=== PATIENT | female | born 1995 | race African-American/Black ===

== ENCOUNTER 2021-01-15 12:48 | Emergency (ER) | payer MEDICAID, SELFPAY | END 2021-01-15 13:15 | disposition home or self-care (01) | LOC: CSHERS 12:48 | DX: O99.891 Other specified diseases and conditions complicating pregnancy (principal); Z11.3 Encounter for screening for infections with a predominantly sexual mode of transmission; O99.511 Diseases of the respiratory system complicating pregnancy, first trimester; J45.909 Unspecified asthma, uncomplicated; O99.331 Smoking (tobacco) complicating pregnancy, first trimester; F17.210 Nicotine dependence, cigarettes, uncomplicated; Z3A.01 Less than 8 weeks gestation of pregnancy | CPT/HCPCS: 99281 ==

== ENCOUNTER 2021-08-12 20:44 | Emergency (ER) | payer SELFPAY ==
[2021-08-12 21:59] LABS: Bilirubin Neg (Negative); Blood, Urine 25 (Negative); Clarity Clear (Clear); Glucose, Urine (Dipstick) Normal (Negative); Ketone, Urine Negative (Negative); Leukocyte Negative (Negative); Nitrite Negative (Negative); Protein, Urine (Dipstick) 30 mg/dl (Neg-Trace); Urobilinogen Normal mg/dL (Less than 2)
[2021-08-12 22:01] LABS: Pregnancy Test - Urine (BHCG) Negative (Negative); Pregu Control Bar Appear? YES (CONTROL BAR)
[2021-08-12 22:02] LABS: Pregu Control Background? CLEAR/WHITE (CLR/WHITE)
[2021-08-12 22:11] LABS: Bacteria/HPF 1+ HPF (None Seen); Mucous/LPF Rare LPF (<2+); RBC/HPF 0-3 HPF (0-3); Squamous Epithelial 0-3 HPF (0-3); WBC/HPF 0-3 HPF (0-3)
== END 2021-08-12 22:22 | disposition home or self-care (01) ==
LOC: CSHERS 20:44
DX: R53.83 Other fatigue (principal); F17.210 Nicotine dependence, cigarettes, uncomplicated
CPT/HCPCS: 81003; 81015; 81025; 99283

== ENCOUNTER 2024-06-02 18:57 | Inpatient (IN) | payer MEDICAID, OTHER ==
[2024-06-02] MEDS ORDERED: Magnesium Sulfate 20 gm/500 ml 20 GM/500 ML BAG ONE (19:25)
[2024-06-02] MEDS ORDERED: Lidocaine 1% (PF) 30 ML VIAL SC PRN (19:27)
[2024-06-02] MEDS ORDERED: Misoprostol 200 MCG TAB PR PRN (19:27)
[2024-06-02] MEDS ORDERED: Acetaminophen 500 MG TAB PO PRN (19:27)
[2024-06-02] MEDS ORDERED: Diphenoxylate HCl/Atropine Tablet PO PRN (19:27)
[2024-06-02] MEDS ORDERED: Calcium Gluc 4.6 MEQ/10 ML (100 MG/ML) SLOW IVP PRN (19:27)
[2024-06-02] MEDS ORDERED: Carboprost 250 MCG/ML AMP IM PRN (19:27)
[2024-06-02] MEDS ORDERED: hydrALAZINE 20 MG/ML VIAL SLOW IVP PRN ×2 (19:27)
[2024-06-02] MEDS ORDERED: Tranexamic Acid 1,000 MG/10 ML VIAL IVP PRN (19:27)
[2024-06-02] MEDS ORDERED: Docusate 100 MG CAP PO PRN (19:27)
[2024-06-02] MEDS ORDERED: Promethazine HCl 25 MG/ML VIAL IM PRN (19:27)
[2024-06-02] MEDS ORDERED: Penicillin G Potassium 5 MILL.UNITS in Sodium Chloride 0.9% 100 ML IVPB SCH (19:30)
[2024-06-02] MEDS ORDERED: Misoprostol 100 MCG TAB VAG SCH (19:30)
[2024-06-02] MEDS ORDERED: Lactated Ringer's 1,000 ML IV SCH (19:30)
[2024-06-02] MEDS ORDERED: Oxytocin 30 units/NS 500 ML 500 ML IV SCH ×2 (19:30)
[2024-06-02] MEDS ORDERED: Ondansetron PF 4 MG/2 ML Vial ONE (19:41)
[2024-06-02] MEDS: Magnesium Sulfate 20 gm/500 ml 20 GM/500 ML BAG IVPB SCH (19:47)
[2024-06-02] MEDS: Ondansetron PF 4 MG/2 ML Vial IVP PRN (19:48)
[2024-06-02] MEDS: hydrALAZINE 20 MG/ML VIAL SLOW IVP PRN (19:48)
[2024-06-02] MEDS: NIFEdipine 10 MG CAP PO SCH (19:49)
[2024-06-02 20:03] VITALS: BMI 32.3
[2024-06-02] MEDS: hydrALAZINE 20 MG/ML VIAL ONE (20:06)
[2024-06-02] MEDS: Labetalol HCl 100 MG/20 ML VIAL SLOW IVP PRN ×2 (20:30→20:41)
[2024-06-02] MEDS: Lorazepam 2 MG/ML VIAL SLOW IVP PRN (20:35)
[2024-06-02] MEDS: fentaNYL 50 mcg/mL 1 mL Vial SLOW IVP PRN (20:49)
[2024-06-02] MEDS: Labetalol HCl 200 MG TAB PO SCH (21:01)
[2024-06-02] MEDS: Labetalol HCl 100 MG/20 ML VIAL ONE (21:14)
[2024-06-02] MEDS ORDERED: Labetalol HCl 100 MG/20 ML VIAL SLOW IVP SCH (21:15)
[2024-06-02 21:36] LABS: ALT (SGPT) 21 U/L (8-55); AST (SGOT) 44 U/L (5-34); Albumin 2.7 g/dL (3.5-5.0); Alkaline Phosphatase 187 U/L (40-110); Anion Gap 13 mmol/L (10-20); BUN (Urea Nitrogen) 10 mg/dL (7.0-18.7); Bilirubin, Total 1.5 mg/dL (0.2-1.2); Calc. Creatinine Clearance 99 mL/min (70-130); Calcium 8.9 mg/dL (7.8-10.44); Carbon Dioxide 19 mmol/L (22-29); Chloride 106 mmol/L (98-107); Estimated GFR 63; Globulin 3.7 g/dL (2.4-3.5); Glucose 98 mg/dL (70-105); Potassium 3.9 mmol/L (3.5-5.1); Protein, Total 6.4 g/dL (6.0-8.3); Sodium 134 mmol/L (136-145)
[2024-06-02] MEDS: NIFEdipine XL 30 MG ER.TAB PO SCH ×2 (21:49→21:55)
[2024-06-02 22:10] LABS: Syphilis Antibody Nonreactive (Nonreactive); Syphilis Antibody Index 0.06 S/CO (<1.00 Non-Reactive)
[2024-06-02 22:12] LABS: HBsAg Index 0.15 S/CO (0-0.99); HIV (1/2) Antibody/Antigen Non-Reactive (NonReactive); HIV 1/2 INDEX 0.11 S/CO (<1.00); Hep B Surf Ag - L&D Non-Reactive S/CO (NonReactive)
[2024-06-02] MEDS: Misoprostol 100 MCG TAB VAG SCH (23:15)
[2024-06-02 23:26] LABS: #Basophils 0.06 10x3/uL (0.0-0.2); #Eosinphils 0.04 10x3/uL (0.0-0.5); #Monocytes 1.15 10x3/uL (0.0-1.1); %Basophils 0.3 % (0.0-2.0); %Eosinophils 0.2 % (0.0-6.0); %Lymphocytes 4.7 % (18.0-47.0); %Monocytes 5.3 % (0.0-10.0); %Neutrophils 88.9 % (40.0-75.0); Hematocrit 33.5 % (34.9-44.5); Hemoglobin 10.6 g/dL (12.0-15.5); Mean Corpuscular HGB CONC 31.6 g/dL (32.0-36.0); Mean Corpuscular Hemoglobin 23.5 pg (27.0-33.0); Mean Corpuscular Volume 74.1 fL (81.6-98.3); Platelet Count 100 10x3/uL (150-450); RBC Distribution Width 14.6 % (11.5-14.5); Red Blood Cell (RBC) Count 4.52 10x6/uL (3.90-5.03); White Blood Cell (WBC) Count 21.6 10x3/uL (3.5-10.5)
[2024-06-02] MEDS ORDERED: Penicillin G 2.5 MILL.units 2.5 MILL.UNITS in Premix 1 BAG IVPB SCH (23:30)
[2024-06-02] MEDS: Furosemide 100 MG (10 mL) VIAL SLOW IVP SCH (23:38)
[2024-06-02] MEDS: CEFAZOLIN 2 GM in Sodium Chloride 0.9% 100 ML IVPB SCH (23:49)
[2024-06-03 00:31] LABS: Creatinine, Urine 20.35 mg/dL (47-110)
[2024-06-03 00:35] LABS: Hypochromia SLIGHT = 6-15 cells (100X) (0-5/hpf); Large Platelets SLIGHT (None Seen); Microcytosis SLIGHT = 6-15 cells (100X) (0-5/hpf); Platelet Adequacy Comment Appears Decreased; Polychromasia SLIGHT = 2-3 cells (100X) (0-2/hpf)
[2024-06-03] MEDS: NIFEdipine 10 MG CAP PO SCH (00:45)
[2024-06-03 00:55] LABS: Bilirubin Neg (Negative); Blood, Urine 250 (Negative); Clarity Slightly Cloudy (Clear); Glucose, Urine (Dipstick) 100 mg/dL (Negative); Ketone, Urine Negative (Negative); Leukocyte Negative (Negative); Nitrite Negative (Negative); Protein, Urine (Dipstick) 500 mg/dl (Neg-Trace); Urobilinogen Normal mg/dL (Less than 2)
[2024-06-03 00:57] LABS: Amphetamine Not Detected (NotDetected); Barbiturates Screen Not Detected (NotDetected); Benzodiazepine Screen Detected (NotDetected); Cocaine Metabolite Screen Not Detected (NotDetected); Methadone Not Detected (NotDetected); Methamphetamine Not Detected (NotDetected); Opiate Screen Not Detected (NotDetected); Oxycodone Screen Not Detected (NotDetected); Phencyclidine (PCP) Not Detected (NotDetected); THC/Cannabinoid Screen Not Detected (NotDetected); Tricyclic Screen Not Detected (NotDetected)
[2024-06-03 01:03] LABS: Bacteria/HPF None Seen HPF (None Seen); RBC/HPF Greater than 50 HPF (0-3); WBC/HPF 0-3 HPF (0-3)
[2024-06-03] MEDS ORDERED: niCARdipine 25 MG in Sodium Chloride 0.9% 250 ML 250 ML IVPB SCH (01:45)
[2024-06-03] MEDS ORDERED: hydrALAZINE 20 MG/ML VIAL SLOW IVP PRN ×2 (02:18)
[2024-06-03] MEDS: Labetalol HCl 200 MG TAB PO SCH (02:38)
[2024-06-03] MEDS: Amlodipine 5 MG TAB PO SCH (02:59)
[2024-06-03] MEDS ORDERED: Famotidine/PF 20 mg/2ml Vial SLOW IVP SCH ×2 (03:00→21:00)
[2024-06-03 03:01] VITALS: BP 134/94
[2024-06-03] MEDS: Morphine 4 MG/ML VIAL SLOW IVP SCH (04:17)
[2024-06-03] MEDS ORDERED: Labetalol HCl 200 MG TAB PO SCH ×2 (09:00)
[2024-06-03] MEDS ORDERED: Amlodipine 10 MG TAB PO SCH (09:00)
[2024-06-03] MEDS ORDERED: NIFEdipine 10 MG CAP PO SCH (09:00)
[2024-06-04 07:20] LABS: Toxoplasma IgG AB Less than 3.0 IU/mL (0.0-7.1)
[2024-06-05 06:15] LABS: Toxoplasma IgM AB Less than 3.0 AU/mL (0.0-7.9)
[2024-06-05 14:17] LABS: Parvovirus B19 IgG ABS 6.2 index (0.0-0.8); Parvovirus B19 IgM ABS 0.2 index (0.0-0.8)
[2024-06-05 19:13] LABS: CMV DNA-PCR Test Negative (Negative)
== END 2024-06-03 05:10 | disposition short-term general hospital (02) | DRG 832 ==
LOC: CSHLD/OP 18:57 → CSHLD 19:28
PROVIDERS: ADMIT Obstetrics & Gynecology; ATTEND Obstetrics & Gynecology
PROC: 3E0P7VZ Introduction of Hormone into Female Reproductive, Via Natural or Artificial Opening (ICD-10-PCS; principal; 2024-06-02)
DX: O14.13 Severe pre-eclampsia, third trimester (principal); O36.4XX0 Maternal care for intrauterine death, not applicable or unspecified; O41.03X0 Oligohydramnios, third trimester, not applicable or unspecified; Z3A.35 35 weeks gestation of pregnancy; E88.09 Other disorders of plasma-protein metabolism, not elsewhere classified; O99.891 Other specified diseases and conditions complicating pregnancy; O99.333 Smoking (tobacco) complicating pregnancy, third trimester; F17.290 Nicotine dependence, other tobacco product, uncomplicated
CPT/HCPCS: 36415; 51702; 76815; 80053; 80306; 81001; 82570; 84156; 86747; 86762; 86777; 86778; 86780; 86850; 86900; 86901; 87340; 87389; 87497; 99285; J0360; J1940; J2060; J2272; J2405; J3010; J3475